=== PATIENT | male | born 1995 | race Caucasian/White ===

== ENCOUNTER 2025-07-18 19:01 | Emergency (ER) | payer OTHER, SELFPAY ==
[2025-07-18 19:20] VITALS: BP 136/77; PULSE 68; RESP 18; TEMP 36.3; O2SAT 99; BMI 39.5
[2025-07-18 19:50] LABS: MANUAL DIFF FLAG NO
[2025-07-18 19:53] LABS: Hematocrit 44.7 % (42.0-52.0); Hemoglobin 15.4 g/dl (14.0-18.0); Imm Gran Abs Auto 0.06 X10*3/uL (0.00-0.03); Imm Gran Pct Auto 0.4 % (0.0-0.4); Lymphocytes Absolute Auto 1.2 X10*3/uL (1.2-4.9); Mean Corpuscular HGB Conc 34.5 g/dl (31.0-36.0); Mean Corpuscular Hemoglobin 29.1 pg (27.0-33.0); Mean Corpuscular Volume 84.3 fL (80.0-98.0); NRBC Abs Auto 0.000 X10*3/uL (0.0-0.012); NRBC Pct Auto 0.0 /100WBC (0.0-0.2); Platelet Count 375 X10*3/uL (160-400); Red Blood Count 5.30 X10*6/uL (4.60-5.80); White Blood Count 14.7 X10*3/uL (4.8-10.8)
--- NOTE | 2025-07-18 19:55 | ED.GENADULT ---
HPI - General Adult General Chief complaint: Nausea/Vomiting/Diarrhea Stated complaint: vomiting, abdominal pain Time Seen by Provider: 07/18/25 22:27 Source: patient Mode of arrival: ambulatory Limitations: no limitations History of Present Illness ED Provider: Dr. Agustina Ramires HPI narrative: 30-year-old male with a history of cannabis hyperemesis syndrome presenting with nausea, vomiting, severe crampy abdominal pain ongoing since early this morning. Patient admits he feels as though he is having another round of cannabis hyperemesis. He did use marijuana yesterday. Admits that today he woke up with crampy abdominal pain that was in his lower abdomen, radiating to his back associated with severe nausea and vomiting. Last able to tolerate oral intake yesterday. Otherwise denies associated fever, diarrhea, recent antibiotic use, urinary complaints, testicular pain or swelling. Had been feeling well yesterday. Denies other illicit substance use including alcohol. Related Data Previous Rx's ?Medication ?Instructions ?Recorded ondansetron 4 mg disintegrating 4 mg PO Q8H PRN nausea and 07/19/25 tablet vomiting #10 tabs Allergies Allergy/AdvReac Type Severity Reaction Status Date / Time acetaminophen (From Allergy Unknown RASH Unverified 07/18/25 19:22 Tylenol-Codeine #3) bee pollen (BEE STINGS) Allergy Unknown ANAPHYLAXIS Verified 07/19/25 00:42 codeine (From Allergy Unknown RASH Verified 07/19/25 00:42 Tylenol-Codeine #3) sulfamethoxazole (From Allergy Unknown RASTA'S Verified 07/19/25 00:42 BACTRIM) SYNDROME trimethoprim (From BACTRIM) Allergy Unknown RASTA'S Verified 07/19/25 00:42 SYNDROME LILAC Allergy Unknown ANAPHYLAXIS Uncoded 07/19/25 00:42 Review of Systems Review of Systems: as per HPI, full review of systems performed and negative but for the above mentioned pertinent positives and negatives. PMFSH Social History Social History Smoked in Last 30 Days: No Use of substances other than those prescribed or required for medical reasons: Yes Substance Use Type: Marijuana Advance Directives: No Advance Directives Information Provided: No Do you have a plan to hurt others: No Plan Physical Exam ED Exam Exam: GENERAL: Ill-Appearing, appears uncomfortable. SKIN: Normal skin color for ethnicity, warm, dry, no rashes noted. HEENT:? Normocephalic, atraumatic, no stridor, dry mucous membranes, dentition intact, EOMI. NECK: Soft, supple, full ROM, midline structures nontender, no step-offs, no deformities, no lymphadenopathy. CHEST: Heart regular rhythm, no murmurs, symmetric chest rise and fall. PULMONARY: Clear to auscultation bilaterally, diminished at the bases, no labored breathing, no wheezes/rhales/rhonchi. ABDOMINAL: Soft, nondistended, diffusely tender to palpation without rebound or guarding, quiet bowel sounds in all quadrants. : Deferred. MUSCULOSKELETAL: Normal tone, full range of motion, no deformities, no peripheral edema. NEURO: Alert and oriented x3, CN II through XII intact, equal strength and sensation bilateral upper and lower extremities, no focal neurologic deficits.? PSYCHIATRIC: Flat affect, fluid speech, good eye contact and appropriate demeanor. Vital Signs: Vital Signs - 24 hr 07/18/25 19:20 07/18/25 22:30 07/19/25 00:41 Temperature 97.3 F 98.7 F 98.5 F Pulse Rate 68 69 80 Respiratory Rate 18 18 16 Blood Pressure 136/77 135/79 123/77 Pulse Oximetry 99 98 97 Oxygen Delivery Method Room Air Room Air Room Air BMI result Body Mass Index 39.5 Course Course Course Narrative: This is a Rapid Medical Examination (RME) performed by Ciera Mcknight PA-C in triage. Full HPI, ROS, assessment and treatment plan per primary provider in the Main ED. Hx: 30 yo M here for eval of N/V and abd pain since 729 this morning. no diarrhea. hx of cannabinoid hyperemesis - last smoked yesterdyay. no recent travel/abx. Plan: labs Medications Administered Discontinued Medications Generic Name Dose Route Start Last Admin Trade Name Freq PRN Reason Stop Dose Admin Haloperidol Lactate 5 mg 07/18/25 23:15 07/18/25 23:27 Haloperidol Lactate 5 Mg/Ml Vial IVPUSH 07/18/25 23:16 5 mg STAT STA Administration Lactated Ringer's 1,000 mls @ 999 mls/hr 07/18/25 23:15 07/19/25 02:51 Lr IV 07/19/25 00:15 Infused .Q1H1M ONE Infusion Lactated Ringer's 1,000 mls @ 999 mls/hr 07/18/25 23:15 07/19/25 02:51 Lr IV 07/19/25 00:15 Infused .Q1H1M ONE Infusion Medical Decision Making Medical Decision Making [facility] Narrative: Patient presents today with a chief complaint of vomiting. Differential diagnosis includes surgical emergency such as obstruction, enteritis, hyperglycemia, acidosis, food or drug ingestion, pancreatitis, CVA, allergic reaction such as anaphylaxis, cannabis hyperemesis syndrome or cyclic vomiting syndrome, among many others.? Patient is not showing signs of acute dehydration or hemodynamic instability.? They are having associated abdominal pain. ? Broad-based work-up was initiated based on above history and physical exam. Clinically patient presents as cannabis hyperemesis. Appears uncomfortable but no vomiting here in the emergency department. Plan for IV Haldol, IV fluids. Patient reports that this helped his cannabis hyperemesis in the past. 4:15 AM 07/19/2025 (Dr. Agustina Ramires, D.O.) patient feeling improved after Haldol. Tolerating oral intake without issue. Plan for discharge and outpatient follow up. Discharged in stable condition. Differential Diagnosis Differential Diagnoses: The differential diagnosis associated with the presentation includes (as above) Admission/Observation Consideration of admission/observation: Escalation of care including admission/observation considered Lab Data [facility] Lab Attestation statement: I reviewed the patient's lab results. 07/18/25 19:46 07/18/25 19:46 Labs: Lab Results 07/18/25 07/19/25 Range/Units 19:46 02:07 WBC 14.7 H (4.8-10.8) X10*3/uL RBC 5.30 (4.60-5.80) X10*6/uL Hgb 15.4 (14.0-18.0) g/dl Hct 44.7 (42.0-52.0) % MCV 84.3 (80.0-98.0) fL MCH 29.1 (27.0-33.0) pg MCHC 34.5 (31.0-36.0) g/dl RDW 12.2 (11.0-16.0) % Plt Count 375 (160-400) X10*3/uL MPV 9.8 (9.4-12.4) fL Immature Gran % (Auto) 0.4 (0.0-0.4) % Neut % (Auto) 88.9 H (45-73) % Lymph % (Auto) 7.8 L (20-40) % [place] % (Auto) 2.8 (2-11) % Eos % (Auto) 0.0 (0-4) % Baso % (Auto) 0.1 (0-2) % Lymph # (Auto) 1.2 (1.2-4.9) X10*3/uL [place] # (Auto) 0.4 (0.1-1.2) X10*3/uL Eos # (Auto) 0.0 (0.0-0.4) X10*3/uL Baso # (Auto) 0.0 (0.0-0.2) X10*3/uL Abs Immat Gran (auto) 0.06 H (0.00-0.03) X10*3/uL Absolute Neuts (auto) 13.0 H (2.0-8.3) x10*3/uL Absolute Nucleated RBC 0.000 (0.0-0.012) X10*3/uL Nucleated RBC % (auto) 0.0 (0.0-0.2) /100WBC Sodium 141 (135-145) mmol/L Potassium 4.4 (3.3-5.1) mmol/L Chloride 105 (96-108) mmol/L Carbon Dioxide 28 (22-29) mmol/L Anion Gap 12 (12-20) BUN 14 (9-16) mg/dL Creatinine 0.85 (0.5-1.4) mg/dL Estim Creat Clear Calc 165.3 Estimated GFR > 60 Random Glucose 146 H (60-115) mg/dL Calcium 10.0 (8.4-10.2) mg/dL Magnesium 1.9 (1.6-2.6) mg/dL Total Bilirubin 0.5 (0.0-1.0) mg/dL AST 26 (5-37) U/L ALT 57 H (0-40) U/L Alkaline Phosphatase 108 (39-117) U/L Total Protein 7.7 (6.5-8.0) g/dL Albumin 5.1 H (3.5-5.0) g/dL Lipase 6 L (8-78) U/L Urine Color Yellow Urine Appearance Clear Urine pH 6.5 (5.0-9.0) Ur Specific [place] 1.020 (1.005-1.025) Urine Protein Negative (Neg-Trace) mg/dL Urine Glucose (UA) Negative (Negative) mg/dL Urine Ketones Trace (Negative) mg/dL Urine Blood Negative (Negative) Urine Nitrite Negative (Negative) Ur Leukocyte Esterase Negative (Negative) Discharge Plan Discharge Clinical Impression: Cannabis hyperemesis syndrome concurrent with and due to cannabis abuse Patient Disposition: Home, Self-Care Instructions: Cyclic Vomiting Syndrome (ED) Additional Instructions: Avoid marijuana use when possible. Any amount of marijuana can send you into this state. Return to the ER with any new or worsening symptoms. Follow up with primary care as needed Prescriptions: New ondansetron 4 mg tablet,disintegrating 4 mg PO Q8H PRN (Reason: nausea and vomiting) Qty: 10 0RF Print Language: Slovenian
[2025-07-18 20:08] LABS: Alanine Aminotransferase 57 U/L (0-40); Albumin Level 5.1 g/dL (3.5-5.0); Alkaline Phosphatase 108 U/L (39-117); Anion Gap 12 (12-20); Aspartate Amino Transferase 26 U/L (5-37); Blood Urea Nitrogen 14 mg/dL (9-16); Calcium 10.0 mg/dL (8.4-10.2); Carbon Dioxide 28 mmol/L (22-29); Chloride 105 mmol/L (96-108); Creatinine Clr Calc Pharmacy 165.3; Estimated Glomerular Filt Rate > 60; Lipase 6 U/L (8-78); Magnesium 1.9 mg/dL (1.6-2.6); Potassium 4.4 mmol/L (3.3-5.1); Sodium 141 mmol/L (135-145); Total Protein 7.7 g/dL (6.5-8.0)
[2025-07-18 22:30] VITALS: BP 135/79; PULSE 69; RESP 18; TEMP 37.1; O2SAT 98
--- OUTSIDE RECORDS SUMMARY | 2025-07-18 22:44 | XMS_ITS ---
Author Name [facility] Organization Unknown Care Team Organization Name Specialty Phone Email Start Date End Da te [facility] MENA HUYNH Primary Care [email or web address] 07/30/[address] [facility] ELIS MOLINA Primary Care 09/03/2022 4
[2025-07-18] MEDS: Lactated Ringers 1,000 ML 999 ML IV ×2 (23:27→23:33)
[2025-07-19 00:41] VITALS: BP 123/77; PULSE 80; RESP 16; TEMP 36.9; O2SAT 97
--- NOTE | 2025-07-19 02:56 | PC.NURSE ---
fluids are done infusing; PO challenge starting now.
--- NOTE | 2025-07-19 04:07 | PC.NURSE ---
pt was able to tolerate po challenge; made aware.
[2025-07-19 04:19] VITALS: BP 105/55; PULSE 115; RESP 16; TEMP 36.9; O2SAT 94
[2025-07-19 04:24] VITALS: BP 105/55; PULSE 115; RESP 16; TEMP 36.9; O2SAT 94
== END 2025-07-19 04:32 | disposition home or self-care (01) ==
PROVIDERS: Physician Assistant Medical; Emergency Provider Emergency Medicine
DX: R11.10 Vomiting, unspecified (principal); F12.10 Cannabis abuse, uncomplicated
CPT/HCPCS: 36415; 80053; 81003; 83690; 83735; 85025; 96361; 96374; 99284; J1630; J7120